=== PATIENT | male | born 1960 | race Caucasian/White ===

== ENCOUNTER 2022-05-02 13:43 | Outpatient (CLI) | payer BC, SELFPAY | END 2022-05-02 13:44 | disposition home or self-care (01) | LOC: RAD 13:47 | PROVIDERS: PCP Psychiatry & Neurology Neurology; Visit Provider Psychiatry & Neurology Neurology | DX: I63.9 Cerebral infarction, unspecified (principal); G12.29 Other motor neuron disease | CPT/HCPCS: 93306; 96374 ==

== ENCOUNTER 2022-07-29 13:37 | Emergency (ER) | payer BC, SELFPAY ==
[2022-07-29 13:49] VITALS: BP 124/76; PULSE 78; RESP 18; TEMP 36; O2SAT 99; BMI 31.2
--- NOTE | 2022-07-29 15:56 | CRLHL7_ITS ---
For Patients: As a result of the Century Cures Act, medical imaging exams and procedure reports are released immediately into your electronic medical record. You may view this report before your referring provider. If you have questions, please contact your health care provider. INDICATION: Fall. TECHNIQUE: Head CT without contrast. COMPARISON: None. FINDINGS: Periventricular areas of low attenuation, likely due to chronic small vessel ischemic changes. Generalized volume loss. Atherosclerosis. No intracranial hemorrhage. No discrete mass or mass effect. There is no midline shift. The basilar cisterns are patent. No hydrocephalus. The quiles-white matter interface is otherwise preserved. No acute osseous abnormality. No extracalvarial soft tissue abnormality. The mastoid air cells are clear. The paranasal sinuses are well-aerated. The visualized portions of the orbits and globes are unremarkable. IMPRESSION: No acute intracranial process per unenhanced head CT. Please note that all CT scans at this facility use dose modulation, iterative reconstruction, and/or weight-based dosing when appropriate to reduce radiation dose to as low as reasonably achievable. Dictated by Phuc Garcia MD @ 07/29/2022 5:18:55 PM (Electronically Signed)
--- NOTE | 2022-07-29 17:14 | ED.GENADULT ---
HPI - General Adult General Date Seen: 07/29/22 Chief complaint: Head Injury/Pain Stated complaint: Fell, hit head Time Seen by Provider: 07/29/22 15:40 Source: patient and family Mode of arrival: ambulatory Limitations: no limitations History of Present Illness HPI narrative: Patient is a 62-year-old male with underlying ALS. He is here with his after having a fall earlier today. He does not have significant verbal ability remaining, and his provides most of the history. His answers are limited primarily to yes and no. He had fallen earlier today, his says that his balance has been pretty significantly off the past few days. He hit his head on a wooden kitchen chair. He has a hematoma on the left temporal area. He did not have any loss of consciousness, he denies headache aside from pain in the area of the hematoma. He has not had any vomiting, mentation has been baseline. He does not take any blood thinners. He denies neck pain, and does not have any other injuries to chest, abdomen, back, or extremities. He has had an ice pack on the side of his head. Has not taken any other medications. Related Data Home Medications Medication Instructions Recorded Confirmed betamethasone dipropionate 0.05 % 1 applic topical BID 07/29/22 07/29/22 topical cream donepezil 5 mg tablet 5 mg PO DAILY 07/29/22 07/29/22 lisinopril 20 mg tablet 20 mg PO DAILY 07/29/22 07/29/22 metformin 500 mg tablet 500 mg PO BID 07/29/22 07/29/22 mometasone 0.1 % topical cream applic topical 07/29/22 tamsulosin 0.4 mg capsule 0.4 mg PO DAILY 07/29/22 07/29/22 trazodone 50 mg tablet 50 mg PO QPM 07/29/22 07/29/22 Allergies Allergy/AdvReac Type Severity Reaction Status Date / Time No Known Drug Allergies Allergy Verified 07/29/22 13:52 Review of Systems Status of ROS: Reports: 6 or more systems reviewed and unremarkable except as noted in History and below Exam Narrative: Exam Narrative: Vital signs as noted above. In general, an alert, nontoxic male. Head: Normocephalic. He has a fairly flat hematoma with a small abrasion on the left upper temporal area. Eyes: Pupils are equal reactive. Extraocular movements are full. Conjunctivae are normal. ENT: Mucous membranes are moist. Throat is normal. Neck: Supple without lymphadenopathy. Nontender in the midline. Heart: Regular rate and rhythm. No murmur or rub. Lungs: Clear bilaterally. No increased work of breathing, crackles or wheezes. Abdomen: Soft and nontender. No organomegaly. Extremities: Well perfused. No edema. No calf tenderness. Pulses intact. Neurologic: Patient is alert and oriented to person and place. Speech is fluent. Face is symmetric. Moves all extremities equally. Affect: Normal. Skin: Warm and dry. Well perfused. Const: Vital Signs, click to edit/add: Vital Signs - 24 hr 07/29/22 13:49 07/29/22 17:41 Temperature 96.8 F L Pulse Rate [Right Pulse Oximeter] 78 64 Respiratory Rate 18 Blood Pressure [Ri ght Upper Arm] 124/76 102/73 Pulse Oximetry 99 99 Oxygen Delivery Me thod Room Air Room Air Course Course Hospital Course: Did do a CT scan of the head which by my review was negative for acute intracranial hemorrhage, final radiology read was likewise negative for any acute findings. We discussed ice, ibuprofen or Tylenol. If he has worsening symptoms such as severe headache, vomiting, altered mentation etcetera return at any time. He has follow-up at [facility] on Thursday for palliative care and a general check so he can be re-evaluated at that time. Otherwise, he is eager to go home, they are comfortable with discharge. Vital Signs Vital signs: Initial Vital Signs Temperature 96.8 F L 07/29/22 13:49 Temperature Source Temporal Artery Scan 07/29/22 13:49 Pulse Rate 78 07/29/22 13:49 Respiratory Rate 18 07/29/22 13:49 Blood Pressure 124/76 07/29/22 13:49 Blood Pressure Mean 92 07/29/22 13:49 Blood Pressure Position Sitting 07/29/22 13:49 Pulse Oximetry 99 07/29/22 13:49 Oxygen Delivery Method 07/29/22 13:49 Vital Signs Temperature 96.8 F L 07/29/22 13:49 Pulse Rate 78 07/29/22 13:49 Respiratory Rate 18 07/29/22 13:49 Blood Pressure 124/76 07/29/22 13:49 Pulse Oximetry 99 07/29/22 13:49 Oxygen Delivery Method 07/29/22 13:49 Temperature 96.8 F L 07/29/22 13:49 Pulse Rate 64 07/29/22 17:41 Respiratory Rate 18 07/29/22 13:49 Blood Pressure 102/73 07/29/22 17:41 Pulse Oximetry 99 07/29/22 17:41 Oxygen Delivery Method 07/29/22 17:41 Discharge Plan Discharge Clinical Impression: Closed head injury Patient Disposition: Home, Self-Care Condition: Stable Instructions: Head Injury (ED) Additional Instructions: Continue to use ice as needed on the hematoma on the side of her head. Can take ibuprofen or Tylenol if needed for pain. If you have severe headache, vomiting, confusion or other worsening, return at any time for re-evaluation. Otherwise, you should feel better over the next week or so. Prescriptions: No Action metformin 500 mg tablet 500 mg PO BID donepezil 5 mg tablet 5 mg PO DAILY trazodone 50 mg tablet 50 mg PO QPM lisinopril 20 mg tablet 20 mg PO DAILY tamsulosin 0.4 mg capsule 0.4 mg PO DAILY betamethasone dipropionate 0.05 % cream 1 applic topical BID mometasone 0.1 % cream topical Follow Up/Referrals: Evin Phan MD [Primary Care Provider] - Stand Alone Forms: [employer] Info Instructions
[2022-07-29 17:41] VITALS: BP 102/73; PULSE 64; O2SAT 99
== END 2022-07-29 17:42 | disposition home or self-care (01) ==
PROVIDERS: Emergency Provider Emergency Medicine; PCP Family Medicine
DX: S09.90XA Unspecified injury of head, initial encounter (principal); W01.190A Fall on same level from slipping, tripping and stumbling with subsequent striking against furniture, initial encounter
CPT/HCPCS: 70450; 99283; 99284

== ENCOUNTER 2022-08-30 11:05 | Outpatient (CLI) | payer BC, SELFPAY | END 2022-08-30 11:06 | disposition home or self-care (01) | LOC: AMB 09-01 12:10 | PROVIDERS: PCP Family Medicine; Visit Provider Family Medicine | DX: S09.90XA Unspecified injury of head, initial encounter (principal); W07.XXXA Fall from chair, initial encounter; Y92.009 Unspecified place in unspecified non-institutional (private) residence as the place of occurrence of the external cause | CPT/HCPCS: A0425; A0429 ==

== ENCOUNTER 2022-08-30 11:38 | Emergency (ER) | payer BC, SELFPAY ==
[2022-08-30] VITALS (13 sets, daily range): BP systolic 112–131; BP diastolic 71–87; PULSE 59–72; RESP 16; TEMP 36.4; O2SAT 94–96; BMI 23.3
--- NOTE | 2022-08-30 12:02 | CRLHL7_ITS ---
For Patients: As a result of the Cures Act, medical imaging exams and procedure reports are released immediately into your electronic medical record. You may view this report before your referring provider. If you have questions, please contact your health care provider. INDICATION: Fall. Neck pain. COMPARISON: None. TECHNIQUE: Noncontrast CT cervical spine. FINDINGS: Normal vertebral body and facet alignment. No fractures. No vertebral body loss of height. No spondylolisthesis. No prevertebral soft tissue swelling. C1-2: No spinal canal narrowing. C2-3: No spinal canal neural foraminal narrowing. C3-4: No spinal canal or neural foraminal narrowing. C4-5: Shallow posterior disc bulge. No narrowing of spinal canal. No neural foraminal narrowing. C5-6: No spinal canal or neural foraminal narrowing. C6-7: Disc degeneration. Posterior disc bulge disc osteophyte complex. Mild narrowing of spinal canal. Uncovertebral joint hypertrophy results in mild narrowing of the left neural foramen. No narrowing of the right neural foramen. C7-T1: No spinal canal or neural foraminal narrowing. IMPRESSION: 1. Normal alignment. No acute fractures. 2. No prevertebral soft tissue swelling. 3. Cervical spondylosis. Please note that all CT scans at this facility use dose modulation, iterative reconstruction, and/or weight-based dosing when appropriate to reduce radiation dose to as low as reasonably achievable. Dictated by Hector French MD @ 08/30/2022 12:29:31 PM (Electronically Signed)
--- NOTE | 2022-08-30 12:02 | CRLHL7_ITS ---
For Patients: As a result of the Cures Act, medical imaging exams and procedure reports are released immediately into your electronic medical record. You may view this report before your referring provider. If you have questions, please contact your health care provider. INDICATION: Fall. Lump on head. COMPARISON: 07/29/2022. TECHNIQUE: Noncontrast CT head. FINDINGS: Mild generalized volume loss. Patchy low-attenuation change within the white matter consistent with chronic deep white matter small ischemic changes. No acute intracranial hemorrhage, acute infarct, mass effect, or fracture. No midline shift. No abnormal ventricular dilatation. Normal calvarium and skull base. Visualized paranasal sinuses and mastoid air cells are clear. Visualized orbits are unremarkable. Small focal soft tissue swelling and hematoma of the scalp adjacent the left parietal calvarium (series 2, image 40). No underlying fracture. IMPRESSION: 1. No acute intracranial abnormality. 2. Mild generalized volume loss. Chronic deep white matter small vessel ischemic changes. 3. Small scalp hematoma adjacent to the left parietal calvarium. No underlying fracture Please note that all CT scans at this facility use dose modulation, iterative reconstruction, and/or weight-based dosing when appropriate to reduce radiation dose to as low as reasonably achievable. Dictated by Hector French MD @ 08/30/2022 12:27:27 PM (Electronically Signed)
--- NOTE | 2022-08-30 14:06 | ED.FALL ---
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 He fell today in the bathroom this was not witnessed, but they came immediately when they heard the clunk, he is ambulatory with a walker. They noted that he seemed like he was almost knocked out, but never closed his eyes. He did not vomit, they called EMS and they brought him here with neck protection. I find him in room 6, he is in no apparent distress looking straight out, he is able to somewhat verbalize yes and no but really nothing else. He does not complain of any pain however, complaint: fall Onset (ago): minute(s) Fall from: standing Fall witnessed: no Place fall occurred: home Loss of consciousness: No Prolonged down time: no Symptoms prior to fall: none Context: tripped/slipped Location of injury: head Severity: moderate Associated symptoms (after fall): denies Related Data Home Medications Medication Instructions Recorded Confirmed betamethasone dipropionate 0.05 % 1 applic topical BID 07/29/22 07/29/22 topical cream donepezil 5 mg tablet 5 mg PO DAILY 07/29/22 07/29/22 lisinopril 20 mg tablet 20 mg PO DAILY 07/29/22 07/29/22 metformin 500 mg tablet 500 mg PO BID 07/29/22 07/29/22 mometasone 0.1 % topical cream applic topical 07/29/22 tamsulosin 0.4 mg capsule 0.4 mg PO DAILY 07/29/22 07/29/22 trazodone 50 mg tablet 50 mg PO QPM 07/29/22 07/29/22 Allergies Allergy/AdvReac Type Severity Reaction Status Date / Time No Known Drug Allergies Allergy Verified 07/29/22 13:52 Review of Systems Status of ROS: Reports: unobtainable due to medical condition and unobtainable due to mental status PFSH PFSH Social History Smoking Status: Never smoker How often do you have a drink containing alcohol: never AUDIT-C Alcohol total score: 0 Non-prescribed substance use: denies use Exam Narrative: Exam Narrative: Patient is seen in room 6, he is in no apparent distress looking straight forward, his pupils are equal round reactive to light, he is able to follow with absence of nystagmus my fingers, is TMs are normal, he has approximately a 7 x 7 cm hematoma noted over the left superior a septal, temporal area. There is no bogginess, no depression noted. To suggest skull fracture, his cervical spine is nontender, there is no evidence of any step-off deformities, he is able to sit up, grabbed the rales, for me with me helping him. Is no tenderness over his thoracic or lumbar spines, his chest is good air entry bilaterally with no wheezing crackles noted heart sounds are normal no evidence of any other injury over his head or neck, his abdomen is soft, pelvis is normal stable to rocking and other than being stiff is extremities seem to move normal. Const: Vital Signs, click to edit/add: Vital Signs - 24 hr 08/30/22 11:46 08/30/22 11:56 08/30/22 12:00 Temperature 97.6 F Pulse Rate 72 72 Pulse Rate [Right Pulse Oximeter] 67 Respiratory Rate 16 Blood Pressure Blood Pressure [Le ft Upper Arm] 125/73 Pulse Oximetry 94 96 94 Oxygen Delivery Me thod Room Air 08/30/22 12:02 08/30/22 12:21 08/30/22 12:30 Temperature Pulse Rate 69 61 59 L Pulse Rate [Right Pulse Oximeter] Respiratory Rate Blood Pressure 123/80 Blood Pressure [Le ft Upper Arm] Pulse Oximetry 95 95 95 Oxygen Delivery Me thod 08/30/22 12:32 08/30/22 12:45 08/30/22 13:00 Temperature Pulse Rate 64 65 60 Pulse Rate [Right Pulse Oximeter] Respiratory Rate Blood Pressure 112/71 Blood Pressure [Le ft Upper Arm] Pulse Oximetry 94 95 96 Oxygen Delivery Sd thod 08/30/22 13:02 08/30/22 13:15 08/30/22 13:30 Temperature Pulse Rate 61 61 62 Pulse Rate [Right Pulse Oximeter] Respiratory Rate Blood Pressure 112/71 Blood Pressure [Le ft Upper Arm] Pulse Oximetry 94 95 95 Oxygen Delivery Me thod 08/30/22 13:32 Temperature Pulse Rate 68 Pulse Rate [Right Pulse Oximeter] Respiratory Rate Blood Pressure 131/87 Blood Pressure [Le ft Upper Arm] Pulse Oximetry 96 Oxygen Delivery Me thod Course Course Hospital Course: I discussed with the family, and the patient, other no evidence of any acute abnormality I do believe this is just her simple trip and fall given his baseline condition. I think a reasonable course would be to do a road test with his walker, and they have gone to get issues, he is unable to walk with his walker then however I do have some concerns with him taking him home. Reevaluation(s) Reevaluation #1: Patient had a road test with his walker in issues and did very well, with this the family feels comfortable taking him home. Follow-up will be if signs symptoms of worsening which we discussed. Time: 14:28 Vital Signs Vital signs: Initial Vital Signs Temperature 97.6 F 08/30/22 11:46 Temperature Source Temporal Artery Scan 08/30/22 11:46 Pulse Rate 67 08/30/22 11:46 Pulse Rhythm Regular 08/30/22 11:46 Respiratory Rate 16 08/30/22 11:46 Blood Pressure 125/73 08/30/22 11:46 Blood Pressure Mean 90 08/30/22 11:46 Pulse Oximetry 94 08/30/22 11:46 Oxygen Delivery Method Room Air 08/30/22 11:46 Vital Signs Temperature 97.6 F 08/30/22 11:46 Pulse Rate 67 08/30/22 11:46 Respiratory Rate 16 08/30/22 11:46 Blood Pressure 125/73 08/30/22 11:46 Pulse Oximetry 94 08/30/22 11:46 Oxygen Delivery Method Room Air 08/30/22 11:46 Temperature 97.6 F 08/30/22 11:46 Pulse Rate 68 08/30/22 13:32 Respiratory Rate 16 08/30/22 11:46 Blood Pressure 131/87 08/30/22 13:32 Pulse Oximetry 96 08/30/22 13:32 Oxygen Delivery Method Room Air 08/30/22 11:46 MDM - Fall MDM Narrative Medical decision making narrative: Life-threatening differential diagnosis is considered include: Subarachnoid hemorrhage, subdural hemorrhage, epidural hemorrhage. Other differential diagnosis considered include concussion, closed head injury, or neck fracture. Medical Records Attestation: I reviewed the patient's medical records. Imaging Data CT scan - head: My impression: Negative head neck CT by my review Radiologist's impression: Patient: CORINNE LEBLANC Facility:?[facility] Patient ID:?[id number] Site Patient ID:?[id number]. Site :?[id number] Study:?CT Head WITHOUTT-08/30/2022 12:22:40 PM Ordering Physician:Rahul Hayes Final Report: INDICATION: Fall. Lump on head. COMPARISON: 07/29/2022. TECHNIQUE: Noncontrast CT head. FINDINGS: Mild generalized volume loss. Patchy low-attenuation change within the white matter consistent with chronic deep white matter small ischemic changes. No acute intracranial hemorrhage, acute infarct, mass effect, or fracture. No midline shift. No abnormal ventricular dilatation. Normal calvarium and skull base. Visualized paranasal sinuses and mastoid air cells are clear. Visualized orbits are unremarkable. Small focal soft tissue swelling and hematoma of the scalp adjacent the left parietal calvarium (series 2, image 40). No underlying fracture. IMPRESSION: 1. No acute intracranial abnormality. 2. Mild generalized volume loss. Chronic deep white matter small vessel ischemic changes. 3. Small scalp hematoma adjacent to the left parietal calvarium. No underlying fracture Please note that all CT scans at this facility use dose modulation, iterative reconstruction, and/or weight-based dosing when appropriate to reduce radiation dose to as low as reasonably achievable. Dictated by Hector French MD @ 08/30/2022 12:27:27 PM (Electronic Signature) atient: CORINNE LEBLANC Facility:?[facility] Patient ID:?[id number] Site Patient ID:?[id number]. Site :?[id number] Study:?CT Spine Cervical WITHOUT-08/30/2022 12:23:29 PM Ordering Physician:Rahul Hayes Final Report: INDICATION: Fall. Neck pain. COMPARISON: None. TECHNIQUE: Noncontrast CT cervical spine. FINDINGS: Normal vertebral body and facet alignment. No fractures. No vertebral body loss of height. No spondylolisthesis. No prevertebral soft tissue swelling. C1-2: No spinal canal narrowing. C2-3: No spinal canal neural foraminal narrowing. C3-4: No spinal canal or neural foraminal narrowing. C4-5: Shallow posterior disc bulge. No narrowing of spinal canal. No neural foraminal narrowing. C5-6: No spinal canal or neural foraminal narrowing. C6-7: Disc degeneration. Posterior disc bulge disc osteophyte complex. Mild narrowing of spinal canal. Uncovertebral joint hypertrophy results in mild narrowing of the left neural foramen. No narrowing of the right neural foramen. C7-T1: No spinal canal or neural foraminal narrowing. IMPRESSION: 1. Normal alignment. No acute fractures. 2. No prevertebral soft tissue swelling. 3. Cervical spondylosis. Please note that all CT scans at this facility use dose modulation, iterative reconstruction, and/or weight-based dosing when appropriate to reduce radiation dose to as low as reasonably achievable. Dictated by Hector French MD @ 08/30/2022 12:29:31 PM (Electronic Signature) Discharge Plan Discharge Clinical Impression: Concussion without loss of consciousness, History of dementia, ALS (amyotrophic lateral sclerosis) Patient Disposition: Home w/ Parent or Adult Condition: Stable Instructions: Concussion (ED) Additional Instructions: Home rest continue management, will be a little bit weaker for the next few days, I do believe he has a concussion, but the most common symptoms with this is some nausea, mild dizziness. He might also have a headache, and Tylenol would be helpful for this or some cold compresses over the area where the hematoma is. Activity Level: Light activity Discharge Diet: Regular Prescriptions: No Action metformin 500 mg tablet 500 mg PO BID donepezil 5 mg tablet 5 mg PO DAILY trazodone 50 mg tablet 50 mg PO QPM lisinopril 20 mg tablet 20 mg PO DAILY tamsulosin 0.4 mg capsule 0.4 mg PO DAILY betamethasone dipropionate 0.05 % cream 1 applic topical BID mometasone 0.1 % cream topical Follow Up/Referrals: Evin Phan MD [Primary Care Provider] - Stand Alone Forms: [employer] Info Instructions
--- NOTE | 2022-08-30 14:25 | ED.NURSE ---
Resident was ambulated in the hallway to assess mobility. Needs limited assistance as is his baseline. Provider updated.
== END 2022-08-30 14:44 | disposition home or self-care (01) ==
PROVIDERS: Emergency Provider Family Medicine; PCP Family Medicine
DX: S06.0X0A Concussion without loss of consciousness, initial encounter (principal); W01.10XA Fall on same level from slipping, tripping and stumbling with subsequent striking against unspecified object, initial encounter; G12.21 Amyotrophic lateral sclerosis
CPT/HCPCS: 70450; 72125; 99283; 99284

== ENCOUNTER 2022-08-31 08:40 | Outpatient (CLI) | payer OTHER, SELFPAY | END 2022-08-31 08:41 | disposition home or self-care (01) | LOC: AMB 09-01 15:08 | PROVIDERS: PCP Family Medicine; Visit Provider Family Medicine | DX: R53.1 Weakness (principal) | CPT/HCPCS: A0425; A0429 ==

== ENCOUNTER 2022-08-31 12:51 | Outpatient (CLI) | payer OTHER, BC, SELFPAY | END 2022-08-31 12:52 | disposition home or self-care (01) | LOC: AMB 09-01 15:11 | PROVIDERS: PCP Family Medicine; Visit Provider Family Medicine | DX: R33.9 Retention of urine, unspecified (principal) | CPT/HCPCS: A0425; A0428 ==